=== PATIENT | female | born 1995 | race Caucasian/White ===

== ENCOUNTER 2020-01-06 05:30 | Outpatient (CLI) | payer OTHER ==
[2020-01-06 19:28] LABS: SARS-CoV-2 MS2 Positive; SARS-CoV-2 N Gene Negative; SARS-CoV-2 S Gene Negative; SARS-CoV-2 orf1ab Negative
== END 2020-01-06 05:31 | disposition home or self-care (01) ==
LOC: ERS 05:30
PROVIDERS: ATTEND Family Medicine
DX: Z01.812 Encounter for preprocedural laboratory examination (principal); Z11.59 Encounter for screening for other viral diseases
CPT/HCPCS: 87635; U0003

== ENCOUNTER 2020-01-07 19:00 | Inpatient (IN) | payer OTHER ==
[2020-01-07] MEDS ORDERED: Butorphanol Tartrate 1 MG/ML VIAL SLOW IVP PRN (20:02)
[2020-01-07] MEDS ORDERED: Promethazine HCl 25 MG/ML VIAL IM PRN (20:02)
[2020-01-07] MEDS ORDERED: NS / Oxytocin 40 units/1000ml 1,000 ML IV PRN (20:02)
[2020-01-07] MEDS ORDERED: Methylergonovine 0.2 MG/ML VIAL IM PRN (20:02)
[2020-01-07] MEDS ORDERED: Ondansetron PF 4 MG/2 ML Vial IVP PRN (20:02)
[2020-01-07] MEDS ORDERED: Carboprost 250 MCG/ML AMP IM PRN (20:02)
[2020-01-07] MEDS ORDERED: Lidocaine 1% (PF) 30 ML VIAL SC PRN (20:02)
[2020-01-07] MEDS ORDERED: HYDROcodone/Acetaminophen 5/325 mg Tablet PO PRN (20:02)
[2020-01-07] MEDS ORDERED: Ibuprofen 800 MG TAB PO PRN (20:02)
[2020-01-07] MEDS ORDERED: Misoprostol 200 MCG TAB PR PRN (20:02)
[2020-01-07] MEDS ORDERED: hydrALAZINE 20 MG/ML VIAL SLOW IVP PRN (20:02)
[2020-01-07] MEDS ORDERED: Diphenoxylate HCl/Atropine Tablet PO PRN (20:02)
[2020-01-07] MEDS: Lactated Ringer's 1,000 ML IV SCH (20:20)
[2020-01-07 20:57] VITALS: BMI 36.8
[2020-01-07] MEDS ORDERED: NS w/ Oxytocin 10 units 500 ML IV SCH (21:00)
[2020-01-07] MEDS: Misoprostol 100 MCG TAB PO SCH (21:09)
[2020-01-07 21:18] LABS: Hemoglobin 11.4 g/dL (12.0-16.0); Mean Corpuscular HGB CONC 33.3 g/dL (32.0-36.0); Mean Corpuscular Hemoglobin 28.9 pg (27.0-31.0); Mean Corpuscular Volume 86.7 fL (78.0-98.0); Mean Platelet Volume 7.7 fL (7.4-10.4); Platelet Count 272 thou/uL (130-400); RBC Distribution Width 12.8 % (11.5-14.5); Red Blood Cell (RBC) Count 3.94 mill/uL (4.20-5.40); White Blood Cell (WBC) Count 8.8 thou/uL (4.8-10.8)
[2020-01-07 21:57] LABS: HBSAg Index 0.19 S/CO (0-0.99); Hep B Surf Ag Non-Reactive S/CO (NonReactive); Syphilis Antibody Nonreactive (Nonreactive); Syphilis Antibody Index 0.05 S/CO (<1.00 Non-Reactive)
[2020-01-08] MEDS: Misoprostol 100 MCG TAB PO SCH ×3 (00:26→07:33)
[2020-01-08] MEDS: Lactated Ringer's 1,000 ML IV SCH ×2 (03:18→19:15)
[2020-01-08] MEDS: NS w/ Oxytocin 10 units 500 ML IV SCH (10:30)
[2020-01-08] MEDS ORDERED: Fentanyl 4 mcg/Bup 0.1% Cadd 100 ML ONE ×2 (11:31→18:55)
[2020-01-08] MEDS ORDERED: Lactated Ringer's 500 ML IV PRN (12:02)
[2020-01-08] MEDS ORDERED: EPHEDRINE 25 MG/5 ML SYRINGE SLOW IVP PRN (12:02)
[2020-01-08] MEDS ORDERED: Ondansetron PF 4 MG/2 ML Vial IVP PRN (12:02)
[2020-01-08] MEDS ORDERED: Promethazine HCl 25 MG/ML VIAL IM PRN (12:02)
[2020-01-08] MEDS ORDERED: Naloxone HCl 0.4 mg/ml Vial IVP PRN ×2 (12:02)
[2020-01-08] MEDS ORDERED: Acetaminophen 325 MG TAB PO PRN (12:02)
[2020-01-08] MEDS ORDERED: diphenhydrAMINE 50 MG/ML VIAL IVP PRN (12:02)
[2020-01-08] MEDS: Fentanyl 4 mcg/Bupivacaine 0.1% Cassette 100 ML EPIDURAL SCH ×2 (12:15→19:02)
[2020-01-08] MEDS ORDERED: Communication Order-Pharmacy FS PRN (12:15)
[2020-01-09] MEDS: NS w/ Oxytocin 10 units 500 ML IV SCH (01:10)
[2020-01-09] MEDS: Lactated Ringer's 1,000 ML IV SCH ×2 (01:10→06:19)
[2020-01-09] MEDS ORDERED: Fentanyl 4 mcg/Bup 0.1% Cadd 100 ML ONE (01:15)
[2020-01-09] MEDS: Fentanyl 4 mcg/Bupivacaine 0.1% Cassette 100 ML EPIDURAL SCH (01:18)
[2020-01-09] MEDS ORDERED: Bicitra 30 ML UDCUP ONE (02:18)
[2020-01-09] MEDS ORDERED: Azithromycin 500 MG VIAL ONE (02:18)
[2020-01-09] MEDS ORDERED: Lidocaine 2% 10 ML INJ ONE ×2 (02:32→02:53)
[2020-01-09] MEDS ORDERED: Oxytocin 10 UNITS/ML VIAL ONE ×2 (02:34→03:11)
[2020-01-09] MEDS ORDERED: MORPHINE 5 MG/10 ML PF VIAL ONE (02:34)
[2020-01-09] MEDS ORDERED: Ondansetron PF 4 MG/2 ML Vial ONE (02:34)
[2020-01-09] MEDS ORDERED: Metoclopramide HCl 10 MG/2 ML VIAL ONE (02:44)
[2020-01-09] MEDS ORDERED: Metoclopramide HCl 10 MG/2 ML VIAL IVP SCH (02:45)
[2020-01-09] MEDS ORDERED: Ondansetron PF 4 MG/2 ML Vial IVP PRN ×2 (03:04→05:28)
[2020-01-09] MEDS ORDERED: Promethazine HCl 25 MG SUPP PR PRN (03:04)
[2020-01-09] MEDS ORDERED: Ondansetron HCl/PF 4 MG/2 ML Vial IVP PRN (03:04)
[2020-01-09] MEDS ORDERED: L&D-Morphine 4 MG/ML VIAL SLOW IVP PRN (03:04)
[2020-01-09] MEDS ORDERED: Naloxone HCl 0.4 mg/ml Vial IV PRN (03:04)
[2020-01-09] MEDS ORDERED: diphenhydrAMINE 50 MG/ML VIAL IVP PRN (03:04)
[2020-01-09] MEDS ORDERED: Promethazine HCl 25 MG/ML VIAL IM PRN ×2 (03:04→05:28)
[2020-01-09] MEDS ORDERED: Naloxone HCl 0.4 mg/ml Vial IVP PRN ×2 (03:04)
[2020-01-09] MEDS ORDERED: Meperidine HCl/PF 25 MG/ML VIAL SLOW IVP PRN (03:04)
[2020-01-09] MEDS ORDERED: HYDROmorphone 2 MG/ML VIAL SLOW IVP PRN (03:04)
[2020-01-09] MEDS ORDERED: Carboprost 250 MCG/ML AMP ONE (03:10)
[2020-01-09] MEDS ORDERED: Ketorolac Tromethamine 30 MG/ML VIAL IVP SCH (03:15)
[2020-01-09] MEDS ORDERED: Communication Order-Pharmacy FS SCH (03:15)
[2020-01-09 03:22] LABS: Actual Bicarbonate (HCO3a) 24.2 mEq/L (22-28); Actual Bicarbonate (HCO3v) 23 mEq/L (22-28); Base Excess -2.3 mEq/L (-2.0 to +3.0); Base Excess (BEa) -3.4 mEq/L (-2.0 to +3.0); pH (Cord, venous) 7.35 (7.32-7.43)
--- NOTE | 2020-01-09 03:40 | PDOC.OPDEL ---
OB Operative/Delivery Note Delivery Dr/Surgeon: Dr. Mae Assist: Dr. Zhao Pre-Delivery Diagnosis: arrest of dilation Procedure/Post Delivery Dx: primary low transverse CS Weeks gestation: 40 (40.2) Anesthesia: epidural - Findings A Sex: male - 1 min: 8 - 5 min: 9 - Additional Findings/Plan Placenta delivered: manual removal findings: low transverse hysterotomy without extension Estimated blood loss: 600 mL Compilations/Other Findings: Preoperative Diagnosis: 1)Term intrauterine 2)Arrest of Dilation Postoperative Diagnosis: 1)Term intrauterine , delivered 2)Arrest of Dilation Anesthesia: epidural Indications: The patient is a 24 year old female at 40.2 weeks gestation who presented for induction of labor and had arrest of dilation. Procedure in Detail: After risks, benefits, and alternatives were explained to the patient, she gave informed consent. Pre-operative antibiotics included Cefazolin 2 gram IV and Azithromycin 500mg IV. The patient was taken to the operating room and spinal/epidural anesthesia acheived. She was placed in the supine position with a left tilt and prepped and draped in usual sterile fashion. A Pfannenstiel incision was made with a scalpel and carried down to the level of the fascia which was sharply nicked. The fascial cut was extended bilaterally with Sanchez scissors. The inferior and superior edges of the cut fascial edges were elevated with Joshua clamps and the underlying rectus muscles were sharply and bluntly dissected free. The recti were divided digitally and retracted manually. The peritoneum was entered bluntly and retracted manually. Bladder blade was placed. A low transverse score was made with the scalpel and the uterus was entered in the midline bluntly. Clear fluid was seen. The hysterotomy was extended manually. The was noted to be vertex and was not able to be delivered by fundal pressure so vacuum was applied and delivered in first pull with zero pop-offs. Mouth and nares were bulb suctioned. Cord clamped and cut and grossly normal male infant who was a little stunned was handed to waiting nurse. Cord blood was obtained. Placenta was manually extracted, found to be intact with 3 vessel cord and discarded. The uterus was externalized and the endometrium was curetted with a dry lap. The bladder blade was replaced and the uterus was closed with a running locking #1 Monocryl suture. Following this hemostasis was noted. The abdomen was irrigated with saline and suctioned free of clots. Seprafilm was placed over the anterior aspect of the uterus. The uterus was internalized and the hysterotomy was again noted to be hemostatic. The peritoneum was closed with running, nonlocking 3-0 vicryl suture. The fascia was closed with a running non-locking 0-PDS suture. The subcutaneous tissue was irrigated and there were no bleeders. The subcutaneous layer was approximated with interrupted 3-0 vicryl suture. The skin was approximated with mikhail and a pressure dressing was placed. All counts were correct. The patient tolerated the procedure well and was taken to the recovery room in stable condition. Delivery time: 0306 on 01/09/20 Estimated Blood Loss: 600 ml Complications: None Specimens: Cord blood sent to lab for blood type, cord gases drawn Findings: Grossly normal male infant went to nursery. Grossly normal placenta with 3 vessel cord discarded. Drains: Carter to gravity draining clear urine Post delivery plan: routine recovery
[2020-01-09] MEDS ORDERED: Promethazine HCl 25 MG/ML VIAL ONE (03:44)
[2020-01-09] MEDS ORDERED: diphenhydrAMINE 25 MG CAP PO PRN (05:28)
[2020-01-09] MEDS ORDERED: Meperidine HCl/PF 25 MG/ML VIAL IM PRN (05:28)
[2020-01-09] MEDS ORDERED: HYDROcodone/Acetaminophen 5/325 mg Tablet PO PRN (05:28)
[2020-01-09] MEDS ORDERED: Lanolin Ointment 7 GM TUBE TOP PRN (05:28)
[2020-01-09] MEDS ORDERED: Adacel (T-DAP) 0.5 ML SYRINGE IM ONE (05:28)
[2020-01-09] MEDS ORDERED: Bisacodyl 10 MG SUPP PR PRN (05:28)
[2020-01-09] MEDS ORDERED: hydrALAZINE 20 MG/ML VIAL SLOW IVP PRN (05:28)
[2020-01-09] MEDS: Ketorolac Tromethamine 30 MG/ML VIAL IVP SCH ×3 (08:34→22:15)
[2020-01-09] MEDS ORDERED: Ketorolac Tromethamine 30 MG/ML VIAL IVP PRN (09:00)
[2020-01-09] MEDS: Prenatal Vitamin 1 TAB PO SCH (10:21)
[2020-01-09] MEDS: Ferrous Sulfate 325 MG TAB PO SCH ×2 (10:21→22:15)
[2020-01-09] MEDS: HYDROcodone/Acetaminophen 5/325 mg Tablet PO PRN (18:37)
[2020-01-09] MEDS: Simethicone Chewable 80 MG TAB PO PRN (18:37)
[2020-01-09] MEDS ORDERED: Sodium Chloride 0.9% 10 ML ONE (22:21)
[2020-01-10] MEDS: Simethicone Chewable 80 MG TAB PO PRN ×3 (04:34→23:22)
[2020-01-10] MEDS: HYDROcodone/Acetaminophen 5/325 mg Tablet PO PRN ×4 (04:34→23:22)
[2020-01-10] MEDS: Ibuprofen 800 MG TAB PO SCH ×3 (05:35→21:04)
[2020-01-10 05:59] LABS: Hemoglobin 9.6 g/dL (12.0-16.0); Mean Corpuscular HGB CONC 33.2 g/dL (32.0-36.0); Mean Corpuscular Hemoglobin 29.2 pg (27.0-31.0); Mean Corpuscular Volume 88.1 fL (78.0-98.0); Mean Platelet Volume 7.4 fL (7.4-10.4); Platelet Count 209 thou/uL (130-400); RBC Distribution Width 12.7 % (11.5-14.5); Red Blood Cell (RBC) Count 3.29 mill/uL (4.20-5.40); White Blood Cell (WBC) Count 11.3 thou/uL (4.8-10.8)
[2020-01-10] MEDS ORDERED: Ibuprofen 800 MG TAB PO SCH ×2 (06:00→10:00)
[2020-01-10] MEDS: Ferrous Sulfate 325 MG TAB PO SCH ×2 (08:31→21:04)
[2020-01-10] MEDS: Lisinopril 10 MG TAB PO SCH (08:31)
[2020-01-10] MEDS: Prenatal Vitamin 1 TAB PO SCH (08:31)
[2020-01-11] MEDS: Ibuprofen 800 MG TAB PO SCH ×2 (04:36→14:06)
[2020-01-11 06:39] VITALS: TEMP 97.8
[2020-01-11] MEDS: Lisinopril 10 MG TAB PO SCH (08:55)
[2020-01-11] MEDS: Prenatal Vitamin 1 TAB PO SCH (08:55)
[2020-01-11] MEDS: Ferrous Sulfate 325 MG TAB PO SCH (08:55)
[2020-01-11 08:56] VITALS: BP 123/73
[2020-01-11] MEDS: Simethicone Chewable 80 MG TAB PO PRN (14:08)
== END 2020-01-11 19:00 | disposition home or self-care (01) | DRG 788 ==
LOC: L&D 20:00 → 3SW 01-09 06:00
PROVIDERS: ADMIT Family Medicine; ATTEND Family Medicine
PROC: 10D00Z1 Extraction of Products of Conception, Low, Open Approach (ICD-10-PCS; principal; 2020-01-09)
PROC: 3E0P05Z Introduction of Adhesion Barrier into Female Reproductive, Open Approach (ICD-10-PCS; 2020-01-09)
DX: O62.1 Secondary uterine inertia (principal); Z3A.40 40 weeks gestation of pregnancy; Z37.0 Single live birth
CPT/HCPCS: 36415; 51702; 82805; 85027; 86780; 86850; 86900; 86901; 87340; J0456; J0690; J1885; J2001; J2274; J2405; J2550; J2590; J2765; J3490